=== PATIENT | female | born 1945 | race Caucasian/White ===

== ENCOUNTER → 2016-03-09 | Outpatient (CLI) | payer MEDICARE, BC ==
[~2016-03-09] VITALS: Ht 157.5 cm; Wt 74.2 kg
[~2016-03-09] MED LIST: ADVIL200 MG PO; ALLEGRA ALLERG180 MG PO; ALLEGRA ALLERGY60 MG PO; ALLEGRA-D 24HOU1 T24 PO; AMOXICILLIN 8751 TAB PO; ARIMIDEX1 MG PO; AROMASIN25 MG PO; ASPIRIN E.C. 8181 MG PO; AZITHROMYCIN; CALCIFEROL50000 IU PO; CALCIUM CARBONA1 TA2 PO; CALCIUM CITRATE1 TA1 PO; CENTRUM SILVER1 TA2 PO; CILOXAN .3% EY2.5 ML OP; FISH OIL1000 MG PO; FLEXERIL 1010 MG/TAB PO; FLONASEALLERGY NS; FLORAJEN A20 Billion PO; FLUTICASON0.05 MG/A1 NS; K-99595 MG PO; LAMISIL250 MG PO; LEVAQUIN LEVA-750 MG PO; LOVASTATIN40 MG PO; LUTEIN PO; LUTEIN20 M1 PO; LUTEIN20 MG PO; MASON NATURAL2000 IU PO; MEVACOR40 MG PO; NATURAL E400 IU PO; NORCO 325 MG-7.1 TAB PO; OCUVITE PO; OSCAL ULTRA 6001 TAB PO; OSTEO-BI-FLEX 21 TAB PO; PHENERGAN W/CO120 ML PO; PHENTERMINE15 MG PO; PRILOSEC 20MG20 MG PO; PROBIOTIC FORMU1 CAP PO; RITE AID BIO2500 MCG PO; TAMOXIFEN CITRA20 MG PO; ULTRAM 50MG TAB50 MG PO; VITAMIN D31000 IU PO; VITAMIN D32000 I1 PO; VITAMIN D5000 IU PO; VITAMIN E PO; ZYRTEC10 MG PO; [UNRECOGNIZED DRUG - OTHER] TP
[2016-03-09 11:45] VITALS: BP 139/70; PULSE 82
[2016-03-09 12:08] VITALS: BP 139/70; PULSE 82
== END ==
LOC: LIGHT 11:10
DX: E88.81 Metabolic syndrome and other insulin resistance (principal); E78.4 Other hyperlipidemia; E66.3 Overweight; Z68.29 Body mass index [BMI] 29.0-29.9, adult; E11.9 Type 2 diabetes mellitus without complications

== ENCOUNTER → 2016-04-13 | Outpatient (CLI) | payer MEDICARE, BC ==
[~2016-04-13] VITALS: Ht 157.5 cm; Wt 73.3 kg
[2016-04-13 13:09] VITALS: BP 130/72; PULSE 87
[2016-04-13 13:27] VITALS: BP 130/72; PULSE 87
== END ==
LOC: LIGHT 12:04
DX: E88.81 Metabolic syndrome and other insulin resistance (principal); E78.4 Other hyperlipidemia; E11.9 Type 2 diabetes mellitus without complications; E66.3 Overweight; Z68.29 Body mass index [BMI] 29.0-29.9, adult

== ENCOUNTER → 2016-05-25 | Outpatient (CLI) | payer MEDICARE, BC ==
[~2016-05-25] VITALS: Ht 157.5 cm; Wt 74.4 kg
[2016-05-25 13:56] VITALS: BP 141/64; PULSE 93
== END ==
LOC: LIGHT 05-18 11:43
DX: E88.81 Metabolic syndrome and other insulin resistance (principal); E78.4 Other hyperlipidemia; E66.3 Overweight; Z68.30 Body mass index [BMI] 30.0-30.9, adult; E11.9 Type 2 diabetes mellitus without complications; Z90.710 Acquired absence of both cervix and uterus

== ENCOUNTER → 2016-06-22 | Outpatient (CLI) | payer MEDICARE, BC ==
[~2016-06-22] VITALS: Ht 154.9 cm; Wt 73.5 kg
[2016-06-22 11:42] VITALS: BP 133/72; PULSE 81
== END ==
LOC: LIGHT 11:35
DX: E88.81 Metabolic syndrome and other insulin resistance (principal); E78.5 Hyperlipidemia, unspecified; E66.3 Overweight; Z68.30 Body mass index [BMI] 30.0-30.9, adult; E11.9 Type 2 diabetes mellitus without complications

== ENCOUNTER → 2016-06-26 | Outpatient (CLI) | payer MEDICARE, BC | LOC: SUN.DIA 12:44 | DX: E11.9 Type 2 diabetes mellitus without complications (principal); E66.9 Obesity, unspecified; Z68.29 Body mass index [BMI] 29.0-29.9, adult; Z71.3 Dietary counseling and surveillance; E78.5 Hyperlipidemia, unspecified; K21.9 Gastro-esophageal reflux disease without esophagitis; Z85.42 Personal history of malignant neoplasm of other parts of uterus ==

== ENCOUNTER → 2016-08-31 | Outpatient (CLI) | payer MEDICARE, BC ==
[~2016-08-31] VITALS: Ht 157.5 cm; Wt 73.9 kg
[2016-08-31 14:05] VITALS: BP 112/64; PULSE 88
== END ==
LOC: LIGHT 08-10 11:49
DX: E88.81 Metabolic syndrome and other insulin resistance (principal); E78.5 Hyperlipidemia, unspecified; E66.3 Overweight; Z68.29 Body mass index [BMI] 29.0-29.9, adult; Z71.3 Dietary counseling and surveillance; E11.9 Type 2 diabetes mellitus without complications

== ENCOUNTER → 2016-10-12 | Outpatient (CLI) | payer MEDICARE, BC ==
[~2016-10-12] VITALS: Ht 157.5 cm; Wt 74.8 kg
[2016-10-12 10:58] VITALS: BP 114/70; PULSE 84
== END ==
LOC: LIGHT 10:36
DX: E88.81 Metabolic syndrome and other insulin resistance (principal); E78.5 Hyperlipidemia, unspecified; E66.3 Overweight; Z68.30 Body mass index [BMI] 30.0-30.9, adult; E11.9 Type 2 diabetes mellitus without complications; Z90.710 Acquired absence of both cervix and uterus; Z98.890 Other specified postprocedural states

== ENCOUNTER → 2016-11-30 | Outpatient (CLI) | payer MEDICARE, BC ==
[~2016-11-30] VITALS: Ht 156.2 cm; Wt 70.5 kg
[2016-11-30 11:55] VITALS: BP 110/80; PULSE 76
== END ==
LOC: LIGHT 11:13
DX: E88.81 Metabolic syndrome and other insulin resistance (principal); E78.5 Hyperlipidemia, unspecified; E66.3 Overweight; Z68.28 Body mass index [BMI] 28.0-28.9, adult; Z71.3 Dietary counseling and surveillance; E11.9 Type 2 diabetes mellitus without complications

== ENCOUNTER → 2016-12-25 | Outpatient (CLI) | payer MEDICARE, BC | LOC: SUN.DIA 14:32 | DX: E11.9 Type 2 diabetes mellitus without complications (principal); E78.5 Hyperlipidemia, unspecified; E66.9 Obesity, unspecified; Z68.29 Body mass index [BMI] 29.0-29.9, adult; Z71.3 Dietary counseling and surveillance | CPT/HCPCS: G0108 ==

== ENCOUNTER → 2017-01-25 | Outpatient (CLI) | payer MEDICARE, BC ==
[~2017-01-25] VITALS: Ht 156.2 cm; Wt 71.2 kg
[2017-01-25 13:14] VITALS: BP 140/82; PULSE 84
== END ==
LOC: LIGHT 13:07
DX: E88.81 Metabolic syndrome and other insulin resistance (principal); E78.5 Hyperlipidemia, unspecified; E66.3 Overweight; Z68.29 Body mass index [BMI] 29.0-29.9, adult; Z71.3 Dietary counseling and surveillance; E11.9 Type 2 diabetes mellitus without complications

== ENCOUNTER → 2017-03-08 | Outpatient (CLI) | payer MEDICARE, BC ==
[~2017-03-08] VITALS: Ht 156.2 cm; Wt 71.9 kg
[2017-03-08 12:34] VITALS: BP 112/84; PULSE 72
== END ==
LOC: LIGHT 12:22
DX: E88.81 Metabolic syndrome and other insulin resistance (principal); E78.5 Hyperlipidemia, unspecified; E66.3 Overweight; Z68.29 Body mass index [BMI] 29.0-29.9, adult; Z71.3 Dietary counseling and surveillance; E11.9 Type 2 diabetes mellitus without complications
CPT/HCPCS: G0463

== ENCOUNTER → 2017-04-12 | Outpatient (CLI) | payer MEDICARE, BC ==
[~2017-04-12] VITALS: Ht 156.2 cm; Wt 72.8 kg
[2017-04-12 13:09] VITALS: BP 136/86; PULSE 80
== END ==
LOC: LIGHT 08:59
DX: E88.81 Metabolic syndrome and other insulin resistance (principal); E78.5 Hyperlipidemia, unspecified; E66.3 Overweight; Z68.29 Body mass index [BMI] 29.0-29.9, adult; Z71.3 Dietary counseling and surveillance; E11.9 Type 2 diabetes mellitus without complications
CPT/HCPCS: G0463

== ENCOUNTER → 2017-05-17 | Outpatient (CLI) | payer MEDICARE, BC ==
[~2017-05-17] VITALS: Ht 156.2 cm; Wt 72.3 kg
[2017-05-17 13:16] VITALS: BP 130/80; PULSE 80
== END ==
LOC: LIGHT 13:05
DX: E88.81 Metabolic syndrome and other insulin resistance (principal); E78.5 Hyperlipidemia, unspecified; E66.3 Overweight; Z68.29 Body mass index [BMI] 29.0-29.9, adult; Z71.3 Dietary counseling and surveillance; E11.9 Type 2 diabetes mellitus without complications
CPT/HCPCS: G0463

== ENCOUNTER → 2017-06-25 | Outpatient (CLI) | payer MEDICARE, BC | LOC: SUN.DIA 12:59 | DX: E11.9 Type 2 diabetes mellitus without complications (principal); E78.5 Hyperlipidemia, unspecified; E66.9 Obesity, unspecified; Z68.29 Body mass index [BMI] 29.0-29.9, adult; Z71.3 Dietary counseling and surveillance | CPT/HCPCS: G0108 ==

== ENCOUNTER → 2017-08-16 | Outpatient (CLI) | payer MEDICARE, BC ==
[~2017-08-16] VITALS: Ht 156.2 cm; Wt 73.5 kg
[2017-08-16 13:15] VITALS: BP 140/60; PULSE 88
== END ==
LOC: LIGHT 13:07
DX: E88.81 Metabolic syndrome and other insulin resistance (principal); E78.5 Hyperlipidemia, unspecified; E66.3 Overweight; Z68.30 Body mass index [BMI] 30.0-30.9, adult; Z71.3 Dietary counseling and surveillance; E11.9 Type 2 diabetes mellitus without complications
CPT/HCPCS: G0463

== ENCOUNTER → 2017-09-27 | Outpatient (CLI) | payer MEDICARE, BC ==
[~2017-09-27] VITALS: Ht 156.2 cm; Wt 74.2 kg
[2017-09-27 13:22] VITALS: BP 122/74; PULSE 93
== END ==
LOC: LIGHT 12:45
DX: E11.9 Type 2 diabetes mellitus without complications (principal); E88.81 Metabolic syndrome and other insulin resistance; E78.5 Hyperlipidemia, unspecified; E66.3 Overweight; Z68.30 Body mass index [BMI] 30.0-30.9, adult; Z71.3 Dietary counseling and surveillance
CPT/HCPCS: G0463

== ENCOUNTER → 2017-10-01 | Outpatient (CLI) | payer MEDICARE, BC | LOC: SUN.DIA 13:55 | DX: E11.9 Type 2 diabetes mellitus without complications (principal); E78.5 Hyperlipidemia, unspecified; E66.9 Obesity, unspecified | CPT/HCPCS: G0108 ==

== ENCOUNTER → 2017-11-08 | Outpatient (CLI) | payer MEDICARE, BC ==
[~2017-11-08] VITALS: Ht 156.2 cm; Wt 74.4 kg
[2017-11-08 13:36] VITALS: BP 126/72; PULSE 76
== END ==
LOC: LIGHT 13:29
DX: E88.81 Metabolic syndrome and other insulin resistance (principal); E78.5 Hyperlipidemia, unspecified; E11.9 Type 2 diabetes mellitus without complications; E66.3 Overweight; Z68.30 Body mass index [BMI] 30.0-30.9, adult; Z71.3 Dietary counseling and surveillance
CPT/HCPCS: G0463

== ENCOUNTER → 2017-11-21 | Outpatient (CLI) | payer MEDICARE, BC | LOC: SUN.DIA 09:51 | DX: E11.9 Type 2 diabetes mellitus without complications (principal); E78.5 Hyperlipidemia, unspecified; E66.9 Obesity, unspecified | CPT/HCPCS: G0109 ==

== ENCOUNTER → 2017-11-28 | Outpatient (CLI) | payer MEDICARE, BC | LOC: SUN.DIA 15:52 | DX: E11.9 Type 2 diabetes mellitus without complications (principal); E78.5 Hyperlipidemia, unspecified; E66.9 Obesity, unspecified | CPT/HCPCS: G0109 ==

== ENCOUNTER → 2017-12-05 | Outpatient (CLI) | payer MEDICARE, BC | LOC: SUN.DIA 14:14 | DX: E11.9 Type 2 diabetes mellitus without complications (principal); E78.5 Hyperlipidemia, unspecified; E66.9 Obesity, unspecified | CPT/HCPCS: G0109 ==

== ENCOUNTER → 2017-12-12 | Outpatient (CLI) | payer MEDICARE, BC | LOC: SUN.DIA 14:10 | DX: E11.9 Type 2 diabetes mellitus without complications (principal); E78.5 Hyperlipidemia, unspecified; E66.9 Obesity, unspecified | CPT/HCPCS: G0109 ==

== ENCOUNTER → 2018-01-24 | Outpatient (CLI) | payer MEDICARE, BC ==
[~2018-01-24] VITALS: Ht 156.2 cm; Wt 75.1 kg
[2018-01-24 14:41] VITALS: BP 126/80; PULSE 100
== END ==
LOC: LIGHT 12-13 10:54
DX: E88.81 Metabolic syndrome and other insulin resistance (principal); E78.5 Hyperlipidemia, unspecified; E11.9 Type 2 diabetes mellitus without complications; E66.3 Overweight; Z68.30 Body mass index [BMI] 30.0-30.9, adult; Z71.3 Dietary counseling and surveillance
CPT/HCPCS: G0463

== ENCOUNTER → 2018-03-11 | Outpatient (CLI) | payer MEDICARE, BC | LOC: SUN.DIA 12:49 | DX: E11.9 Type 2 diabetes mellitus without complications (principal); E78.5 Hyperlipidemia, unspecified; E66.9 Obesity, unspecified | CPT/HCPCS: G0108 ==

== ENCOUNTER → 2018-03-28 | Outpatient (CLI) | payer MEDICARE, BC ==
[~2018-03-28] VITALS: Ht 156.2 cm; Wt 76.0 kg
[2018-03-28 13:11] VITALS: BP 148/90; PULSE 88
== END ==
LOC: LIGHT 13:06
DX: E88.81 Metabolic syndrome and other insulin resistance (principal); E78.5 Hyperlipidemia, unspecified; E11.65 Type 2 diabetes mellitus with hyperglycemia; E66.3 Overweight; Z68.31 Body mass index [BMI] 31.0-31.9, adult; Z71.3 Dietary counseling and surveillance
CPT/HCPCS: G0463

== ENCOUNTER → 2018-05-23 | Outpatient (CLI) | payer MEDICARE, BC ==
[~2018-05-23] VITALS: Ht 156.2 cm; Wt 75.7 kg
[2018-05-23 13:13] VITALS: BP 130/82; PULSE 88
== END ==
LOC: LIGHT 13:02
DX: E88.81 Metabolic syndrome and other insulin resistance (principal); E78.5 Hyperlipidemia, unspecified; E11.9 Type 2 diabetes mellitus without complications; E66.3 Overweight; Z71.3 Dietary counseling and surveillance
CPT/HCPCS: G0463

== ENCOUNTER → 2018-07-04 | Outpatient (CLI) | payer MEDICARE, BC ==
[~2018-07-04] VITALS: Ht 156.2 cm; Wt 76.4 kg
[~2018-07-04] MED LIST changes: +LOMAIRA8 MG PO
[2018-07-04 13:18] VITALS: BP 140/84; PULSE 80
== END ==
LOC: LIGHT 13:04
DX: E88.81 Metabolic syndrome and other insulin resistance (principal); E78.5 Hyperlipidemia, unspecified; E11.9 Type 2 diabetes mellitus without complications; E66.3 Overweight; Z68.31 Body mass index [BMI] 31.0-31.9, adult; Z71.3 Dietary counseling and surveillance
CPT/HCPCS: G0463

== ENCOUNTER → 2018-08-05 | Outpatient (CLI) | payer MEDICARE, BC | LOC: SUN.DIA 13:02 | DX: E11.9 Type 2 diabetes mellitus without complications (principal); E78.5 Hyperlipidemia, unspecified; E66.9 Obesity, unspecified ==

== ENCOUNTER → 2018-08-08 | Outpatient (CLI) | payer MEDICARE, BC ==
[~2018-08-08] VITALS: Ht 156.2 cm; Wt 76.7 kg
[2018-08-08 14:30] VITALS: BP 132/76; PULSE 88
== END ==
LOC: LIGHT 11:48
DX: E88.81 Metabolic syndrome and other insulin resistance (principal); E78.5 Hyperlipidemia, unspecified; E11.9 Type 2 diabetes mellitus without complications; E66.9 Obesity, unspecified; Z68.31 Body mass index [BMI] 31.0-31.9, adult; Z71.3 Dietary counseling and surveillance
CPT/HCPCS: G0463

== ENCOUNTER 2018-08-24 11:27 | Emergency (ER) | payer MEDICARE, BC ==
[2018-08-24 12:29] LABS: COLLECTION METHOD CLEAN CATCH
[2018-08-24 12:34] LABS: PH 5 (5-8); SQUAMOUS EPITHELIAL 0-2 /hpf; URINE APPEARANCE Clear; URINE BACTERIA Rare /hpf; URINE BILIRUBIN Negative (NEGATIVE); URINE BLOOD Negative (NEGATIVE); URINE COLOR Straw; URINE GLUCOSE 1+ (NEGATIVE); URINE KETONE Negative (NEGATIVE); URINE LEUKOCYTE ESTERASE Negative (NEGATIVE); URINE NITRATE Negative (NEGATIVE); URINE PROTEIN(semi-quant) Negative (NEGATIVE); URINE RBC 0-2 /hpf; URINE UROBILINOGEN Negative (NEGATIVE)
[2018-08-24 12:46] LABS: BASO % 0.7 % (0.0-2.0); EOS # 0.2 (0.0-0.7); EOS % 3.7 % (0-4.0); GRAN # 2.3 (1.4-6.5); GRAN % 56.3 % (42.2-75.2); HEMATOCRIT 38.3 % (37.0-47.0); HEMOGLOBIN 13.2 g/dl (12.5-16.0); LYMPH # 1.1 (1.2-3.4); LYMPH % 28.4 % (20.0-51.0); MEAN CELL VOLUME 89 fl (80.0-100.0); MEAN CORPUSCULAR HEMOGLOBIN 31 pg (27.0-31.0); MEAN CORPUSCULAR HGB CONC 35 g/dl (33.0-37.0); MEAN PLATELET VOLUME 9.3 fl (7.4-10.4); MONO # 0.4 (0.1-0.6); MONO % 10.7 % (1.7-9.3); PLATELET COUNT 190 K/mm3 (130-400); RED BLOOD COUNT 4.29 M/mm3 (4.10-5.30); REDCELL DISTRIBUTION WIDTH-CV 12.3 % (11.5-14.5)
[2018-08-24 12:57] LABS: CREATININE, serum 0.48 (0.52-1.25); POTASSIUM 3.7 mmol/L (3.4-5.0)
[2018-08-24] MEDS ORDERED: AMOXICILLIN 8751 TAB PO (13:24)
[2018-08-24 15:00] VITALS: BP 117/60; PULSE 97; TEMP 98
== END 2018-08-24 15:00 | disposition home or self-care (01) ==
LOC: COL.ER 11:27
PROVIDERS: Emergency Medicine
DX: J98.01 Acute bronchospasm (principal); Z79.51 Long term (current) use of inhaled steroids
CPT/HCPCS: J8540

== ENCOUNTER → 2018-09-19 | Outpatient (CLI) | payer MEDICARE, BC ==
[~2018-09-19] VITALS: Ht 156.2 cm; Wt 75.7 kg
[2018-09-19 13:36] VITALS: BP 136/80; PULSE 102
== END ==
LOC: LIGHT 10:35
DX: E88.81 Metabolic syndrome and other insulin resistance (principal); E78.5 Hyperlipidemia, unspecified; E11.9 Type 2 diabetes mellitus without complications; E66.3 Overweight; Z68.31 Body mass index [BMI] 31.0-31.9, adult; Z71.3 Dietary counseling and surveillance
CPT/HCPCS: G0463

== ENCOUNTER → 2018-11-14 | Outpatient (CLI) | payer MEDICARE, BC ==
[~2018-11-14] VITALS: Ht 156.2 cm; Wt 75.3 kg
[2018-11-14 13:11] VITALS: BP 140/84; PULSE 92
== END ==
LOC: LIGHT 11:26
DX: E88.81 Metabolic syndrome and other insulin resistance (principal); E78.5 Hyperlipidemia, unspecified; E11.9 Type 2 diabetes mellitus without complications; E66.3 Overweight; Z68.30 Body mass index [BMI] 30.0-30.9, adult; Z71.3 Dietary counseling and surveillance
CPT/HCPCS: G0463

== ENCOUNTER 2018-12-05 13:27 | Outpatient (RCR) | payer MEDICARE, BC | END 2019-03-05 | disposition still patient (30) | LOC: WSST | DX: K44.9 Diaphragmatic hernia without obstruction or gangrene (principal) ==

== ENCOUNTER → 2018-12-26 | Outpatient (CLI) | payer MEDICARE, BC ==
[~2018-12-26] VITALS: Ht 156.2 cm; Wt 75.3 kg
[2018-12-26 14:09] VITALS: BP 120/80; PULSE 88
== END ==
LOC: LIGHT 13:43
DX: E88.81 Metabolic syndrome and other insulin resistance (principal); E78.5 Hyperlipidemia, unspecified; E11.9 Type 2 diabetes mellitus without complications; E66.9 Obesity, unspecified; Z68.30 Body mass index [BMI] 30.0-30.9, adult; Z71.3 Dietary counseling and surveillance
CPT/HCPCS: G0463

== ENCOUNTER → 2018-12-31 | Outpatient (CLI) | payer MEDICARE, BC | LOC: COL.RAD 14:47 | DX: K44.9 Diaphragmatic hernia without obstruction or gangrene (principal); R13.14 Dysphagia, pharyngoesophageal phase ==

== ENCOUNTER → 2019-03-20 | Outpatient (CLI) | payer MEDICARE, BC ==
[~2019-03-20] VITALS: Ht 156.2 cm; Wt 74.8 kg
[2019-03-20 13:07] VITALS: BP 144/76; PULSE 88
== END ==
LOC: LIGHT 13:00
DX: Z68.30 Body mass index [BMI] 30.0-30.9, adult (principal); E88.81 Metabolic syndrome and other insulin resistance; E11.9 Type 2 diabetes mellitus without complications; E78.5 Hyperlipidemia, unspecified
CPT/HCPCS: G0463

== ENCOUNTER → 2019-04-07 | Outpatient (CLI) | payer MEDICARE, BC | LOC: DIA.ED 15:19 | DX: E11.9 Type 2 diabetes mellitus without complications (principal); E66.8 Other obesity; E78.5 Hyperlipidemia, unspecified | CPT/HCPCS: G0270 ==

== ENCOUNTER → 2019-04-24 | Outpatient (CLI) | payer MEDICARE, BC ==
[~2019-04-24] VITALS: Ht 156.2 cm; Wt 74.4 kg
[2019-04-24 13:27] VITALS: BP 134/76; PULSE 103
== END ==
LOC: LIGHT 10:00
DX: Z68.30 Body mass index [BMI] 30.0-30.9, adult (principal); E88.81 Metabolic syndrome and other insulin resistance; E78.5 Hyperlipidemia, unspecified; E11.9 Type 2 diabetes mellitus without complications
CPT/HCPCS: G0463

== ENCOUNTER → 2019-08-28 | Outpatient (CLI) | payer MEDICARE, BC ==
[~2019-08-28] VITALS: Ht 156.2 cm; Wt 75.7 kg
[~2019-08-28] MED LIST changes: -LUTEIN20 M1 PO; +OCUVITE1 TA1 PO
[2019-08-28 13:10] VITALS: BP 140/80; PULSE 95
== END ==
LOC: LIGHT 12:59
DX: E66.8 Other obesity (principal); E11.9 Type 2 diabetes mellitus without complications; Z68.31 Body mass index [BMI] 31.0-31.9, adult; E88.81 Metabolic syndrome and other insulin resistance; E78.5 Hyperlipidemia, unspecified
CPT/HCPCS: G0463

== ENCOUNTER → 2019-10-02 | Outpatient (CLI) | payer MEDICARE, BC ==
[~2019-10-02] VITALS: Ht 156.2 cm; Wt 75.7 kg
[2019-10-02 13:41] VITALS: BP 138/80; PULSE 96
== END ==
LOC: LIGHT 11:23
DX: E66.8 Other obesity (principal); Z68.31 Body mass index [BMI] 31.0-31.9, adult; E11.9 Type 2 diabetes mellitus without complications; E78.5 Hyperlipidemia, unspecified; E88.81 Metabolic syndrome and other insulin resistance
CPT/HCPCS: G0463

== ENCOUNTER → 2019-10-13 | Outpatient (CLI) | payer MEDICARE, BC | LOC: DIA.ED 13:27 → EDSTATUS 13:28 | DX: E11.9 Type 2 diabetes mellitus without complications (principal); E66.8 Other obesity; E78.5 Hyperlipidemia, unspecified | CPT/HCPCS: G0270 ==

== ENCOUNTER → 2019-10-13 | Outpatient (CLI) | payer MEDICARE, BC | LOC: SUN.DIA 07-08 14:14 → DIA.ED 04-07 13:18 | DX: E11.9 Type 2 diabetes mellitus without complications (principal); E78.5 Hyperlipidemia, unspecified; I10 Essential (primary) hypertension; Z79.84 Long term (current) use of oral hypoglycemic drugs | CPT/HCPCS: G0108 ==

== ENCOUNTER → 2019-11-27 | Outpatient (CLI) | payer MEDICARE, BC ==
[~2019-11-27] VITALS: Ht 156.2 cm; Wt 74.8 kg
[2019-11-27 13:09] VITALS: BP 110/70; PULSE 103
== END ==
LOC: LIGHT 12:59
DX: E66.8 Other obesity (principal); Z68.30 Body mass index [BMI] 30.0-30.9, adult; E88.81 Metabolic syndrome and other insulin resistance; E78.5 Hyperlipidemia, unspecified; E11.9 Type 2 diabetes mellitus without complications
CPT/HCPCS: G0463

== ENCOUNTER → 2020-04-19 | Outpatient (CLI) | payer MEDICARE, BC | LOC: DIA.ED 04-05 10:30 | DX: E11.9 Type 2 diabetes mellitus without complications (principal); E78.5 Hyperlipidemia, unspecified; E66.8 Other obesity | CPT/HCPCS: G0270 ==

== ENCOUNTER → 2020-10-20 | Outpatient (CLI) | payer MEDICARE, BC | LOC: DIA.ED 10:12 | DX: E11.9 Type 2 diabetes mellitus without complications (principal); E78.5 Hyperlipidemia, unspecified | CPT/HCPCS: G0270 ==

== ENCOUNTER → 2022-12-04 | Outpatient (CLI) | payer MEDICARE, BC ==
[~2022-12-04] MED LIST changes: +CEPHALEXIN500 M1 PO
== END ==
LOC: DIA.ED 13:38
DX: E11.9 Type 2 diabetes mellitus without complications (principal); Z79.84 Long term (current) use of oral hypoglycemic drugs; E78.5 Hyperlipidemia, unspecified
CPT/HCPCS: G0108

== ENCOUNTER → 2023-06-04 | Outpatient (CLI) | payer MEDICARE, BC | LOC: DIA.ED 07:21 | DX: E11.40 Type 2 diabetes mellitus with diabetic neuropathy, unspecified (principal); Z79.84 Long term (current) use of oral hypoglycemic drugs; E78.5 Hyperlipidemia, unspecified | CPT/HCPCS: G0108 ==

== ENCOUNTER 2023-12-09 08:22 | Emergency (ER) | payer MEDICARE, BC ==
[~2023-12-09] VITALS: Ht 154.9 cm; Wt 65.9 kg
[2023-12-09 08:30] VITALS: TEMP 98.7
[2023-12-09] MEDS ORDERED: Doxycycline Monohydrate 100 MG CAP PO ONE (09:15)
[2023-12-09] MEDS ORDERED: Albuterol 90 MCG/PUFF 8 GM MDI IH ONE (09:15)
[2023-12-09] MEDS ORDERED: predniSONE 10 MG TAB PO ONE (09:15)
[2023-12-09] MEDS ORDERED: PREDNISONE50 MG PO (10:13)
[2023-12-09] MEDS ORDERED: DOXYCYCLINE 10100 MG PO (10:13)
[2023-12-09 10:32] VITALS: BP 120/75; PULSE 90
== END 2023-12-09 10:30 | disposition home or self-care (01) ==
LOC: COL.ER 08:22
DX: J06.9 Acute upper respiratory infection, unspecified (principal); Z85.3 Personal history of malignant neoplasm of breast; Z85.42 Personal history of malignant neoplasm of other parts of uterus; Z20.822 Contact with and (suspected) exposure to COVID-19
CPT/HCPCS: J7512

== ENCOUNTER → 2023-12-12 | Outpatient (CLI) | payer MEDICARE, BC ==
[~2023-12-12] MED LIST changes: +DOXYCYCLINE 10100 MG PO; +PREDNISONE50 MG PO
== END ==
LOC: DIA.ED 12-03 13:15
DX: E11.40 Type 2 diabetes mellitus with diabetic neuropathy, unspecified (principal); E78.5 Hyperlipidemia, unspecified; Z79.84 Long term (current) use of oral hypoglycemic drugs
CPT/HCPCS: G0108